=== PATIENT | male | born 1955 | race Caucasian/White ===

== ENCOUNTER 2017-04-07 13:56 | Emergency (ER) | payer MEDICARE, MEDICAID ==
[~2017-04-07] VITALS: Ht 165.1 cm; Wt 128.0 kg
[~2017-04-07 13:56] MED LIST: ACET1TAB12 PO; MESA0.37 PO
[2017-04-07] MEDS ORDERED: IBUP-1984 PO (15:47)
[2017-04-07 16:07] VITALS: BP 135/65
== END 2017-04-07 16:09 | disposition home or self-care (01) ==
LOC: ER 13:57
DX: M25.562 Pain in left knee (principal); I10 Essential (primary) hypertension; J45.909 Unspecified asthma, uncomplicated; Z79.899 Other long term (current) drug therapy; Z90.49 Acquired absence of other specified parts of digestive tract
CPT/HCPCS: 29505; 73564; 99284

== ENCOUNTER 2017-05-27 11:06 | Emergency (ER) | payer MEDICARE, MEDICAID ==
[~2017-05-27] VITALS: Ht 165.1 cm; Wt 93.6 kg
[2017-05-27 11:09] VITALS: BP 140/88
[2017-05-27] MEDS ORDERED: AZIT250T PO (11:48)
[2017-05-27] MEDS ORDERED: BENZ-16 PO (11:48)
== END 2017-05-27 11:54 | disposition home or self-care (01) ==
LOC: ER 11:06
DX: J06.9 Acute upper respiratory infection, unspecified (principal); I10 Essential (primary) hypertension; J45.909 Unspecified asthma, uncomplicated
CPT/HCPCS: 99283

== ENCOUNTER 2017-12-01 16:15 | Emergency (ER) | payer MEDICARE, MEDICAID ==
[~2017-12-01] VITALS: Ht 165.1 cm; Wt 118.0 kg
[~2017-12-01 16:15] MED LIST changes: +PROCHC RC
[2017-12-01] MEDS ORDERED: ketorolac trometh. 30mg/ml inj. IV ONE (16:35)
[2017-12-01] MEDS ORDERED: normal saline 1000ML IV soln IVB ONE (16:35)
[2017-12-01] MEDS ORDERED: ondansetron/PF 4mg/2ml inj IV ONE (16:35)
[2017-12-01 16:52] LABS: BASOPHILS % (AUTO) 0.6 % (0-1); EOSINOPHILS # (AUTO) 0.2 X10'3 (0-0.9); EOSINOPHILS % (AUTO) 2.9 % (0-6); HEMATOCRIT 42.2 % (42.0-52.0); HEMOGLOBIN 14.1 g/dl (14.0-17.9); LYMPHOCYTES # (AUTO) 1.8 X10'3 (1.1-4.8); LYMPHOCYTES % (AUTO) 21.9 % (21-51); MEAN CORPUSCULAR HEMOGLOBIN 30.1 PG (27.0-31.0); MEAN CORPUSCULAR HGB CONC 33.4 % (33.0-36.5); MEAN CORPUSCULAR VOLUME 90.3 FL (78-98); MONOCYTES # (AUTO) 0.7 X10'3 (0-0.9); MONOCYTES % (AUTO) 8.1 % (2-12); NEUTROPHILS # (AUTO) 5.5 X10'3 (1.8-7.7); NEUTROPHILS % (AUTO) 66.5 % (42-75); PLATELET COUNT 259 X10'3 (140-440); RED BLOOD COUNT 4.67 X10'6 (4.70-6.10); RED CELL DISTRIBUTION WIDTH 13.6 % (11.5-14.5); WHITE BLOOD COUNT 8.3 X10'3 (4.5-11.0)
[2017-12-01 17:10] LABS: ALANINE AMINOTRANSFERASE 24 U/L (12-78); ALBUMIN 3.8 G/DL (3.4-5.0); ALBUMIN/GLOBULIN RATIO 0.9 (1.1-1.5); ALKALINE PHOSPHATASE 67 IU/L (46-116); ANION GAP 10 (8-16); ASPARTATE AMINO TRANSFERASE 15 U/L (10-37); BILIRUBIN,TOTAL 0.3 MG/DL (0.1-1.0); BLOOD UREA NITROGEN 17 MG/DL (7-18); BUN/CREATININE RATIO 14.8 (5.4-32.0); CALCIUM 9.2 MG/DL (8.5-10.1); CHLORIDE 103 MMOL/L (99-107); CREATININE 1.15 MG/DL (0.60-1.10); GLUCOSE 95 MG/DL (70-104); LIPASE 197 U/L (73-393); SODIUM 139 MMOL/L (135-145); TOTAL CARBON DIOXIDE 26.3 MMOL/L (24-32); eGFR 64 ML/MIN
[2017-12-01] MEDS ORDERED: morphine 4 MG/ML inj SYRINge IV ONE (18:10)
[2017-12-01 18:13] LABS: CLARITY,URINE Clear (Clear); COLOR,URINE Yellow (Yellow); GLUCOSE, URINE Negative (Neg); KETONES,URINE Negative (Neg); LEUKOCYTE ESTERASE ,URINE Negative (Neg); NITRITES, URINE Negative (Neg); OCCULT BLOOD,URINE Negative (Neg); PROTEIN,URINE Negative (Neg)
[2017-12-01 18:17] LABS: UA COLLECTION TYPE STRAIGHT CATH
[2017-12-01] MEDS ORDERED: LIDO700A32 TOP (18:24)
[2017-12-01] MEDS ORDERED: ACET-2615 PO (18:24)
[2017-12-01] MEDS ORDERED: MELO-100 PO (18:24)
[2017-12-01] MEDS ORDERED: acetaminophen 325mg tablet PO ONE (18:25)
[2017-12-01 19:01] VITALS: BP 115/58
== END 2017-12-01 19:04 | disposition home or self-care (01) ==
LOC: ER 16:15
DX: M54.89 Other dorsalgia (principal); I10 Essential (primary) hypertension; J45.909 Unspecified asthma, uncomplicated
CPT/HCPCS: 36415; 74176; 80053; 81003; 83690; 85025; 96374; 96375; 99285; A4353; J1885; J2270; J2405; J7030

== ENCOUNTER 2018-06-09 10:41 | Day surgery (SDC) | payer MEDICARE, MEDICAID ==
[~2018-06-09 10:41] MED LIST changes: +LIDO700A32 TOP; +MELO-100 PO
[2018-06-09] MEDS ORDERED: LORA10CA9 (12:00)
[2018-06-09] MEDS ORDERED: LIDOcaine 1%/PF 5ML 10 MG/ML VIAL ONE (12:08)
[2018-06-09] MEDS ORDERED: MESA0.37 PO (14:20)
[2018-06-09] MEDS ORDERED: LORA10TA7 PO (14:20)
[2018-06-09] MEDS ORDERED: LISI10TA4 PO (14:20)
--- NOTE | 2018-06-09 14:37 | NUR ---
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 Patient assessed for conditions, medications and medical history. 1130 Dr Jin at the bedside. Time out done. Papillomas injected with lidocaine and removed by Dr Jin with #10 scalpel. Samples collected and sent to pathology. Procedure tolerated well. [address] Jin to follow up in his surgical office in 1-2 weeks. Also instructed to leave dressing on for 24 hours then remove and cover any sites that still be oozing with a bandaid. Pt verbalizes understanding of the above instructions
== END 2018-06-09 12:31 | disposition home or self-care (01) ==
LOC: WOUND CARE 10:41
PROVIDERS: ATTEND Surgery
DX: D23.5 Other benign neoplasm of skin of trunk (principal); L08.89 Other specified local infections of the skin and subcutaneous tissue; I10 Essential (primary) hypertension; J45.909 Unspecified asthma, uncomplicated; E66.9 Obesity, unspecified; G47.33 Obstructive sleep apnea (adult) (pediatric); Z98.890 Other specified postprocedural states; Z87.442 Personal history of urinary calculi; L91.8 Other hypertrophic disorders of the skin
CPT/HCPCS: 11400; J2001; 88304

== ENCOUNTER 2019-03-19 21:05 | Emergency (ER) | payer MEDICARE, MEDICAID ==
[~2019-03-19] VITALS: Ht 160 cm; Wt 113.6 kg
[~2019-03-19 21:05] MED LIST changes: -ACET1TAB12 PO; -LIDO700A32 TOP; +LISI10TA4 PO; +LORA10CA9; +LORA10TA7 PO; -MELO-100 PO
[2019-03-19 21:08] VITALS: BP 164/84
[2019-03-19] MEDS ORDERED: AMOX-422 PO (21:28)
[2019-03-19] MEDS ORDERED: dexamethasone sod phosphate 10mg/ml inj PO STA (21:29)
== END 2019-03-19 22:27 | disposition home or self-care (01) ==
LOC: ER 21:06
DX: J18.9 Pneumonia, unspecified organism (principal); J02.9 Acute pharyngitis, unspecified; I10 Essential (primary) hypertension; J45.909 Unspecified asthma, uncomplicated; R62.50 Unspecified lack of expected normal physiological development in childhood; Z87.442 Personal history of urinary calculi; Z90.49 Acquired absence of other specified parts of digestive tract; Z79.899 Other long term (current) drug therapy
CPT/HCPCS: 71046; 99283; J1100

== ENCOUNTER 2019-04-19 14:51 | Emergency (ER) | payer MEDICARE, MEDICAID ==
[~2019-04-19] VITALS: Ht 165.1 cm; Wt 120.4 kg
[2019-04-19] MEDS ORDERED: ketorolac trometh. 30mg/ml inj. IM STA (15:23)
[2019-04-19] MEDS ORDERED: LIDOcaine 5% patch TP STA (15:23)
[2019-04-19 15:26] LABS: CLARITY,URINE SLIGHTLY CLOUDY (Clear); COLOR,URINE YELLOW (Yellow); GLUCOSE, URINE NEGATIVE (Neg); KETONES,URINE NEGATIVE (Neg); LEUKOCYTE ESTERASE ,URINE TRACE (Neg); NITRITES, URINE NEGATIVE (Neg); OCCULT BLOOD,URINE TRACE-INTACT (Neg); PROTEIN,URINE NEGATIVE (Neg); UA COLLECTION TYPE VOIDED; UROBILINOGEN,URINE 0.2 E.U/dL (0.2-1.0)
[2019-04-19 15:35] LABS: MUCUS STRANDS FEW /LPF (Neg); SQUAMOUS EPITHELIAL CELL,UR FEW /LPF (FEW)
[2019-04-19 15:37] LABS: BACTERIA,URINE 1+ /HPF (Neg)
[2019-04-19] MEDS ORDERED: normal saline 1000ML IV soln IVB ONE (16:00)
[2019-04-19 16:25] LABS: BASOPHILS # (AUTO) 0.1 X10'3 (0-0.2); BASOPHILS % (AUTO) 0.7 % (0-1); EOSINOPHILS # (AUTO) 0.4 X10'3 (0-0.9); EOSINOPHILS % (AUTO) 4.4 % (0-6); HEMATOCRIT 42.2 % (42.0-52.0); HEMOGLOBIN 14.2 g/dl (14.0-17.9); LYMPHOCYTES # (AUTO) 2.1 X10'3 (1.1-4.8); LYMPHOCYTES % (AUTO) 24.8 % (21-51); MEAN CORPUSCULAR HGB CONC 33.6 g/dL (33.0-36.5); MEAN CORPUSCULAR VOLUME 89.3 FL (78-98); MEAN PLATELET VOLUME 7.9 FL (7.4-10.4); MONOCYTES # (AUTO) 0.6 X10'3 (0-0.9); NEUTROPHILS # (AUTO) 5.5 X10'3 (1.8-7.7); NEUTROPHILS % (AUTO) 63.1 % (42-75); PLATELET COUNT 249 X10'3 (140-440); RED BLOOD COUNT 4.72 X10'6 (4.70-6.10); RED CELL DISTRIBUTION WIDTH 13.5 % (11.5-14.5); WHITE BLOOD COUNT 8.7 X10'3 (4.5-11.0)
[2019-04-19 16:42] LABS: ALANINE AMINOTRANSFERASE 23 U/L (12-78); ALBUMIN 3.9 G/DL (3.4-5.0); ALBUMIN/GLOBULIN RATIO 0.9 (1.1-1.5); ALKALINE PHOSPHATASE 79 IU/L (46-116); ANION GAP 9 (8-16); ASPARTATE AMINO TRANSFERASE 14 U/L (10-37); BILIRUBIN,TOTAL 0.2 MG/DL (0.1-1.0); BLOOD UREA NITROGEN 19 MG/DL (7-18); BUN/CREATININE RATIO 15.7 (5.4-32.0); CHLORIDE 103 MMOL/L (99-107); CREATININE 1.21 MG/DL (0.60-1.10); GLUCOSE 102 MG/DL (70-104); LIPASE 222 U/L (73-393); POTASSIUM 4.7 MMOL/L (3.5-5.1); SODIUM 137 MMOL/L (135-145); TOTAL CARBON DIOXIDE 24.8 MMOL/L (24-32); TOTAL PROTEIN 8.1 G/DL (6.4-8.2); eGFR 60 ML/MIN
[2019-04-19] MEDS ORDERED: CEPH500C5 PO ×2 (16:55→16:58)
[2019-04-19 18:15] VITALS: BP 143/104
== END 2019-04-19 18:16 | disposition home or self-care (01) ==
LOC: ER 14:51
DX: S46.811A Strain of other muscles, fascia and tendons at shoulder and upper arm level, right arm, initial encounter (principal); N39.0 Urinary tract infection, site not specified; J06.9 Acute upper respiratory infection, unspecified; B97.89 Other viral agents as the cause of diseases classified elsewhere; I10 Essential (primary) hypertension; J45.909 Unspecified asthma, uncomplicated; Z90.49 Acquired absence of other specified parts of digestive tract; Z87.442 Personal history of urinary calculi; Z79.899 Other long term (current) drug therapy; X50.0XXA Overexertion from strenuous movement or load, initial encounter; Y93.89 Activity, other specified; Y92.89 Other specified places as the place of occurrence of the external cause; Y99.8 Other external cause status
CPT/HCPCS: 36415; 71045; 74176; 80053; 81001; 83690; 85025; 87088; 96372; 99284; J1885; J7030

== ENCOUNTER 2019-09-11 13:56 | Emergency (ER) | payer MEDICARE, MEDICAID ==
[~2019-09-11] VITALS: Ht 165.1 cm; Wt 123.0 kg
[~2019-09-11 13:56] MED LIST changes: +CEPH500C5 PO
[2019-09-11 14:11] VITALS: BP 141/71
[2019-09-11] MEDS ORDERED: ACET325C6 PO (16:11)
== END 2019-09-11 16:32 | disposition home or self-care (01) ==
LOC: ER 13:57
DX: M25.561 Pain in right knee (principal); I10 Essential (primary) hypertension; J45.909 Unspecified asthma, uncomplicated; M19.90 Unspecified osteoarthritis, unspecified site; Z90.49 Acquired absence of other specified parts of digestive tract; Z79.899 Other long term (current) drug therapy
CPT/HCPCS: 73564; 99284

== ENCOUNTER 2020-01-04 07:43 | Day surgery (SDC) | payer MEDICARE, MEDICAID ==
[2019-12-28 15:45] LABS: BASOPHILS # (AUTO) 0.1 X10'3 (0-0.2); BASOPHILS % (AUTO) 0.8 % (0-1); EOSINOPHILS # (AUTO) 0.2 X10'3 (0-0.9); EOSINOPHILS % (AUTO) 2.9 % (0-6); LYMPHOCYTES # (AUTO) 1.9 X10'3 (1.1-4.8); LYMPHOCYTES % (AUTO) 22.5 % (21-51); MEAN CORPUSCULAR HEMOGLOBIN 31.2 PG (27.0-31.0); MEAN CORPUSCULAR HGB CONC 33.7 g/dL (33.0-36.5); MEAN CORPUSCULAR VOLUME 92.4 FL (78-98); MEAN PLATELET VOLUME 8.2 FL (7.4-10.4); MONOCYTES # (AUTO) 0.6 X10'3 (0-0.9); MONOCYTES % (AUTO) 6.7 % (2-12); NEUTROPHILS # (AUTO) 5.8 X10'3 (1.8-7.7); NEUTROPHILS % (AUTO) 67.1 % (42-75); PRE OP HEMATOCRIT 40.2 % (42.0-52.0); PRE OP HEMOGLOBIN 13.5 g/dL (14.0-17.9); PRE OP PLATELET COUNT 237 X10'3 (140-440); RED BLOOD COUNT 4.35 X10'6 (4.70-6.10)
[2019-12-28 15:59] LABS: ALBUMIN 3.8 G/DL (3.4-5.0); ALKALINE PHOSPHATASE 68 IU/L (46-116); BLOOD UREA NITROGEN 17 MG/DL (7-18); BUN/CREATININE RATIO 16.7 (5.4-32.0); CALCIUM 9.1 MG/DL (8.5-10.1); CHLORIDE 103 MMOL/L (99-107); CREATININE 1.02 MG/DL (0.60-1.10); PRE OP ALT 27 U/L (30-65); PRE OP ANION GAP 7 (8-16); PRE OP AST 11 U/L (10-37); PRE OP BILIRUB, TOTAL 0.3 MG/DL (0.0-1.0); PRE OP GLUCOSE 94 MG/DL (70-104); PRE OP SODIUM 138 MMOL/L (135-145); TOTAL CARBON DIOXIDE 27.8 MMOL/L (24-32); TOTAL PROTEIN 7.6 G/DL (6.4-8.2); eGFR 73 ML/MIN
[~2020-01-04] VITALS: Ht 165.1 cm; Wt 125.8 kg
[2020-01-04] VITALS (8 sets, daily range): BP systolic 116–140; BP diastolic 57–65
[~2020-01-04 07:43] MED LIST changes: -CEPH500C5 PO; -LORA10CA9; -LORA10TA7 PO; -MESA0.37 PO; -PROCHC RC; +ceFAZolin inj. 3,000 MG in normal saline 100ml IV soln 100 ML IV ONE; +famotidine 20mg tablet PO ONE; +ringers solution, lacted 1,000 ML IV SCH; +vancomycin 1,500 MG in NS 300ml IV soln IV ONE
[2020-01-04] MEDS ORDERED: BUPIVAcaine/PF 2.5 mg/ml (0.25%) 30ml vial ONE (10:13)
[2020-01-04] MEDS ORDERED: labetalol 20mg/4ml (5mg/ml) syringe IV PRN (10:20)
[2020-01-04] MEDS ORDERED: morphine 2 MG/ML inj. syringe IV PRN (10:20)
[2020-01-04] MEDS ORDERED: hydrALAZINE 20mg/ml inj. IV PRN (10:20)
[2020-01-04] MEDS ORDERED: ringers solution, lacted 1,000 ML IV SCH (10:20)
[2020-01-04] MEDS ORDERED: meperidine/PF 25mg/ml syringe IV PRN ×3 (10:20)
[2020-01-04] MEDS ORDERED: proCHLORperazine 10 MG/2 ml inj IV PRN (10:20)
[2020-01-04] MEDS ORDERED: ondansetron/PF 4mg/2ml inj IV PRN (10:20)
[2020-01-04] MEDS ORDERED: morphine 4 MG/ML inj SYRINge IV PRN (10:20)
[2020-01-04] MEDS ORDERED: acetaminophen 1,000mg/100ml IV 100 ML IV PRN (10:20)
[2020-01-04] MEDS ORDERED: sevoflurane 250ml liquid IH ONE (10:20)
[2020-01-04] MEDS ORDERED: fentaNYL/PF 50MCG/1 ML 2ML syringe ONE (10:27)
[2020-01-04] MEDS ORDERED: midazolam 2 mg/2 ml injection ONE (10:31)
[2020-01-04] MEDS ORDERED: LIDOcaine 2% (20mg/ml) 5ml vial ONE (10:43)
[2020-01-04] MEDS ORDERED: rocuronium 10mg/ml inj IV ONE (10:43)
[2020-01-04] MEDS ORDERED: propofol inj 20 ML IV ONE (10:43)
[2020-01-04] MEDS ORDERED: dexamethasone sod phosphate 4mg/ml inj. ONE (10:57)
[2020-01-04] MEDS ORDERED: ondansetron/PF 4mg/2ml inj ONE (10:57)
[2020-01-04] MEDS ORDERED: triamcinolone acetonide 40mg/ml inj ONE (11:25)
[2020-01-04] MEDS ORDERED: neostigmine methylsulfate 1 MG/ML 10ml vial ONE (11:32)
[2020-01-04] MEDS ORDERED: glycopyrrolate 0.2mg/ml inj ONE (11:32)
--- NOTE | 2020-01-04 11:49 | NUR ---
Received from OR via [facility] , accompanied by Anesthesiologist ARIEL and report given by Anesthesiolgist. PATIENT WITH 20G PIV IN RIGHT UE RUNNING LR AT 100. RIGHT KNEE WITH BIAS WRAP PRESENT. + DORSALIS PEDIS. VSS. 10L MASK ON WITH 100% SATURATIONS. Addendum: 01/04/20 at 1158 by Daren Melvin RN, RN Amended: Links added.
--- NOTE | 2020-01-04 12:59 | NUR ---
PATIENT AND FAMILY AND THEY HAVE VERBALIZED UNDERSTANDING, OPPORTUNITY TO ASK QUESTIONS GIVEN AND PATIENT COMFORTABLE WITH DC. IV TAKEN OUT WITHOUT COMPLICATION. PATIENT HAS MET ALL DC CRITERIA FOR DC HOME. I HAVE REVIEWED D/C INSTRUCTIONS WITH OUT VIA WHEELCHAIR WHERE PATIENT WAS TAKEN HOME WITH ALL BELONGINGS. FAMILY GAVE PATIENT TRANSPORT HOME. CARE TURNED OVER. CALLED PATIENTS CAREGIVER TO USE CPAP FOR NEXT 24 HOURS. Addendum: 01/04/20 at 1317 by Daren Melvin RN, RN Amended: Links added.
== END 2020-01-04 12:59 | disposition home or self-care (01) ==
LOC: PAS 07:43
PROVIDERS: ATTEND Orthopaedic Surgery
DX: S83.281A Other tear of lateral meniscus, current injury, right knee, initial encounter (principal); S83.231A Complex tear of medial meniscus, current injury, right knee, initial encounter; M94.261 Chondromalacia, right knee; M17.0 Bilateral primary osteoarthritis of knee; J45.909 Unspecified asthma, uncomplicated; G47.33 Obstructive sleep apnea (adult) (pediatric); E78.5 Hyperlipidemia, unspecified; I10 Essential (primary) hypertension; E66.01 Morbid (severe) obesity due to excess calories; Z68.42 Body mass index [BMI] 45.0-49.9, adult; Z98.890 Other specified postprocedural states; Z79.899 Other long term (current) drug therapy; Z20.828 Contact with and (suspected) exposure to other viral communicable diseases; X58.XXXA Exposure to other specified factors, initial encounter; Y93.89 Activity, other specified; Y92.89 Other specified places as the place of occurrence of the external cause; Y99.8 Other external cause status
CPT/HCPCS: 29873; 29879; 29880; 36415; 80053; 82948; 85025; 87635; 93005; J0690; J1100; J2001; J2175; J2250; J2405; J2704; J2710; J3010; J3301; J3370; J3490; J7040; A4215; A4618; A6250; A6449; A7000; J7120

== ENCOUNTER 2020-08-19 12:38 | Emergency (ER) | payer MEDICARE, MEDICAID ==
[~2020-08-19] VITALS: Ht 157.5 cm; Wt 131.4 kg
[~2020-08-19 12:38] MED LIST changes: +LISI10TA27 PO; -LISI10TA4 PO; -ceFAZolin inj. 3,000 MG in normal saline 100ml IV soln 100 ML IV ONE; -famotidine 20mg tablet PO ONE; -ringers solution, lacted 1,000 ML IV SCH; -vancomycin 1,500 MG in NS 300ml IV soln IV ONE
[2020-08-19 13:13] LABS: BASOPHILS % (AUTO) 0.4 % (0-1); EOSINOPHILS # (AUTO) 0.1 X10'3 (0-0.9); EOSINOPHILS % (AUTO) 0.8 % (0-6); HEMATOCRIT 37.9 % (42.0-52.0); HEMOGLOBIN 12.8 g/dl (14.0-17.9); LYMPHOCYTES # (AUTO) 1.7 X10'3 (1.1-4.8); LYMPHOCYTES % (AUTO) 13.4 % (21-51); MEAN CORPUSCULAR HEMOGLOBIN 31.1 PG (27.0-31.0); MEAN CORPUSCULAR HGB CONC 33.7 g/dL (33.0-36.5); MEAN CORPUSCULAR VOLUME 92.3 FL (78-98); MEAN PLATELET VOLUME 8.6 FL (7.4-10.4); MONOCYTES # (AUTO) 0.7 X10'3 (0-0.9); MONOCYTES % (AUTO) 5.3 % (2-12); NEUTROPHILS # (AUTO) 10.2 X10'3 (1.8-7.7); NEUTROPHILS % (AUTO) 80.1 % (42-75); PLATELET COUNT 215 X10'3 (140-440); RED CELL DISTRIBUTION WIDTH 13.2 % (11.5-14.5); WHITE BLOOD COUNT 12.8 X10'3 (4.5-11.0)
[2020-08-19 13:29] LABS: ALANINE AMINOTRANSFERASE 22 U/L (12-78); ALBUMIN 3.4 G/DL (3.4-5.0); ALBUMIN/GLOBULIN RATIO 0.9 (1.1-1.5); ALKALINE PHOSPHATASE 69 IU/L (46-116); ANION GAP 9 (8-16); ASPARTATE AMINO TRANSFERASE 12 U/L (10-37); BILIRUBIN,TOTAL 0.4 MG/DL (0.1-1.0); BLOOD UREA NITROGEN 12 MG/DL (7-18); BUN/CREATININE RATIO 11.1 (5.4-32.0); CHLORIDE 105 MMOL/L (99-107); CREATININE 1.08 MG/DL (0.60-1.10); GLUCOSE 136 MG/DL (70-104); LIPASE 88 U/L (73-393); POTASSIUM 3.7 MMOL/L (3.5-5.1); SODIUM 140 MMOL/L (135-145); eGFR 68 ML/MIN
[2020-08-19 13:36] LABS: CALCIUM 8.7 MG/DL (8.5-10.1)
[2020-08-19 13:50] VITALS: BP 127/75
[2020-08-19] MEDS ORDERED: pantoprazole 40 MG vial IV ONE (13:50)
[2020-08-19] MEDS ORDERED: ondansetron/PF 4mg/2ml inj IV ONE (13:50)
[2020-08-19] MEDS ORDERED: normal saline 1000ml 1,000 ML IV ONE (14:30)
[2020-08-19] MEDS ORDERED: AMOX-422 PO (15:36)
[2020-08-19] MEDS ORDERED: ONDA4TAB6 PO (15:36)
[2020-08-19] MEDS ORDERED: ondansetron 4mg rapidly disintigrating tab PO ONE (15:40)
[2020-08-19] MEDS ORDERED: amox tr/potassium clavulanate 875/125mg TAB PO ONE (15:40)
[2020-08-19] MEDS ORDERED: HYDROcodone/acetaminophen 5mg/325mg tablet PO ONE (15:40)
== END 2020-08-19 16:26 | disposition home or self-care (01) ==
LOC: ER 12:38
DX: R10.31 Right lower quadrant pain (principal); K52.9 Noninfective gastroenteritis and colitis, unspecified; I10 Essential (primary) hypertension; J45.909 Unspecified asthma, uncomplicated; M19.90 Unspecified osteoarthritis, unspecified site; Z87.442 Personal history of urinary calculi; Z79.2 Long term (current) use of antibiotics; Z79.899 Other long term (current) drug therapy
CPT/HCPCS: 36415; 74176; 80053; 83690; 85025; 96361; 96374; 96375; 99284; C9113; J2405; J7030

== ENCOUNTER 2020-09-25 09:15 | Day surgery (SDC) | payer MEDICARE, MEDICAID ==
[~2020-09-25] VITALS: Ht 165.1 cm; Wt 127.3 kg
[~2020-09-25 09:15] MED LIST changes: +ONDA4TAB6 PO
[2020-09-25 09:30] VITALS: BP 140/79
[2020-09-25] MEDS ORDERED: LORA10TA7 PO (09:37)
[2020-09-25] MEDS ORDERED: fentaNYL/PF 50MCG/1 ML 2ML syringe ONE (09:42)
[2020-09-25] MEDS ORDERED: MIDAZolam 1 MG/ML 5ML VIAL ONE (09:42)
[2020-09-25 10:06] VITALS: BP 136/71
[2020-09-25 10:16] VITALS: BP 127/71
[2020-09-25 10:26] VITALS: BP 125/65
[2020-09-25 10:36] VITALS: BP 123/69
== END 2020-09-25 10:40 | disposition home or self-care (01) ==
LOC: GI LAB 09:15
PROVIDERS: ATTEND Internal Medicine Gastroenterology
DX: K51.30 Ulcerative (chronic) rectosigmoiditis without complications (principal); K62.89 Other specified diseases of anus and rectum; I10 Essential (primary) hypertension; J45.909 Unspecified asthma, uncomplicated; E66.9 Obesity, unspecified; Z68.42 Body mass index [BMI] 45.0-49.9, adult; Z79.899 Other long term (current) drug therapy
CPT/HCPCS: 45380; G0500; J2250; J3010; J7040; 88305; 99152; A4620

== ENCOUNTER 2021-04-03 09:57 | Day surgery (SDC) | payer MEDICARE, MEDICAID ==
[2021-03-27 15:01] LABS: BASOPHILS # (AUTO) 0.1 X10'3 (0-0.2); BASOPHILS % (AUTO) 1.3 % (0-1); EOSINOPHILS # (AUTO) 0.3 X10'3 (0-0.9); EOSINOPHILS % (AUTO) 3.7 % (0-6); LYMPHOCYTES # (AUTO) 2.1 X10'3 (1.1-4.8); LYMPHOCYTES % (AUTO) 28.8 % (21-51); MEAN CORPUSCULAR HEMOGLOBIN 31.5 PG (27.0-31.0); MEAN CORPUSCULAR VOLUME 92.5 FL (78-98); MEAN PLATELET VOLUME 8.7 FL (7.4-10.4); MONOCYTES # (AUTO) 0.5 X10'3 (0-0.9); MONOCYTES % (AUTO) 7.4 % (2-12); NEUTROPHILS # (AUTO) 4.2 X10'3 (1.8-7.7); NEUTROPHILS % (AUTO) 58.8 % (42-75); PRE OP HEMATOCRIT 42.2 % (42.0-52.0); PRE OP HEMOGLOBIN 14.4 g/dL (14.0-17.9); PRE OP PLATELET COUNT 220 X10'3 (140-440); RED BLOOD COUNT 4.56 X10'6 (4.70-6.10); RED CELL DISTRIBUTION WIDTH 12.9 % (11.5-14.5)
[2021-03-27 15:14] LABS: ALBUMIN 3.8 G/DL (3.4-5.0); ALBUMIN/GLOBULIN RATIO 0.9 (1.1-1.5); ALKALINE PHOSPHATASE 72 IU/L (46-116); BLOOD UREA NITROGEN 15 MG/DL (7-18); BUN/CREATININE RATIO 14.9 (5.4-32.0); CALCIUM 9.2 MG/DL (8.5-10.1); CHLORIDE 102 MMOL/L (99-107); CREATININE 1.01 MG/DL (0.60-1.10); PRE OP ALT 26 U/L (30-65); PRE OP ANION GAP 11 (8-16); PRE OP BILIRUB, TOTAL 0.3 MG/DL (0.0-1.0); PRE OP GLUCOSE 99 MG/DL (70-104); PRE OP SODIUM 139 MMOL/L (135-145); TOTAL CARBON DIOXIDE 26.2 MMOL/L (24-32); TOTAL PROTEIN 7.9 G/DL (6.4-8.2); eGFR 73 ML/MIN
[2021-03-27 15:16] LABS: PRE OP AST 27 U/L (10-37); PRE OP POTASSIUM 4.5 MMOL/L (3.4-5.1)
[2021-04-03] VITALS (7 sets, daily range): BP systolic 120–149; BP diastolic 58–80
[~2021-04-03] VITALS: Ht 165.1 cm; Wt 123.2 kg
[~2021-04-03 09:57] MED LIST changes: +DICL100G30 TOP; +LORA10TA7 PO; +MESA0.374 PO; -ONDA4TAB6 PO; +famotidine 20mg tablet PO ONE; +ringers solution, lacted 1,000 ML IV SCH
[2021-04-03] MEDS ORDERED: morphine 4 MG/ML inj SYRINge IV PRN (10:55)
[2021-04-03] MEDS ORDERED: ondansetron/PF 4mg/2ml inj IV PRN (10:55)
[2021-04-03] MEDS ORDERED: meperidine/PF 25mg/ml syringe IV PRN ×3 (10:55)
[2021-04-03] MEDS ORDERED: morphine 2 MG/ML inj. syringe IV PRN (10:55)
[2021-04-03] MEDS ORDERED: proCHLORperazine 10 MG/2 ml inj IV PRN (10:55)
[2021-04-03] MEDS ORDERED: ringers solution, lacted 1,000 ML IV SCH (10:55)
[2021-04-03] MEDS ORDERED: triamcinolone acetonide 40mg/ml inj ONE (11:00)
[2021-04-03] MEDS ORDERED: BUPIVAcaine/PF 2.5 mg/ml (0.25%) 30ml vial ONE (11:00)
[2021-04-03] MEDS ORDERED: sevoflurane 250ml liquid IH ONE (11:22)
[2021-04-03] MEDS ORDERED: fentaNYL/PF 50MCG/1 ML 2ML syringe ONE (11:27)
[2021-04-03] MEDS ORDERED: propofol inj 20 ML IV ONE (11:28)
[2021-04-03] MEDS ORDERED: LIDOcaine 2% (20mg/ml) 5ml vial ONE (11:28)
[2021-04-03] MEDS ORDERED: midazolam 1 mg/ML 2ml injection ONE (11:28)
[2021-04-03] MEDS ORDERED: VANCOMYCIN 1,500MG inj. 1,500 MG in normal saline 500ml IV soln 500 ML IV ONE (11:30)
[2021-04-03] MEDS ORDERED: cefazolin/dext.iso 2gm/50ml 50 ML IV ONE (11:35)
[2021-04-03] MEDS ORDERED: cefazolin/dext.iso 2gm/100ml 50 ML IV ONE (11:35)
[2021-04-03] MEDS ORDERED: dexamethasone sod phosphate 4mg/ml inj. ONE (11:53)
[2021-04-03] MEDS ORDERED: ondansetron/PF 4mg/2ml inj ONE (11:53)
[2021-04-03] MEDS ORDERED: meperidine/PF 25mg/ml syringe ONE (11:56)
[2021-04-03] MEDS ORDERED: acetaminophen 1,000mg/100ml IV 100 ML IV ONE (12:45)
--- NOTE | 2021-04-03 12:53 | NUR ---
Received from OR via [facility] , accompanied by Anesthesiologist LIBIA and report given by Anesthesiolgist. PATIENT WIWHT 20G PIV IN RIGHT UE RUNNING LR AT 100. MEDICATED FOR PAIN UPON ARRIVAL FROM ANESTHESIA. PATIENTRIGHTTABBY WITH BIAS DRESSING ON AND IS CDI. + DP TO RIGHT FOOT. GLASSES DONNED UPON ARRIVAL. Addendum: 04/03/21 at 1305 by Daren Melvin RN, RN Amended: Links added.
--- NOTE | 2021-04-03 13:43 | NUR ---
ALL DISCHARGE CRITERIA HAS BEEN MET. VSS, PAIN AT A TOLERABLE LEVEL, VOIDING AND ABLE TO SAFELY AMBULATE AND TRANSFER SELF. IV TAKEN OUT WITHOUT ANY COMPLICATIONS. ALL DISCHARGE INSTRUCTIONS COVERED WITH PATIENT AND ALL QUESTIONS ANSWERED. PATIENT TAKEN OUT VIA WHEELCHAIR TO PERSONAL VEHICLE WHERE FAMILY/FRIEND DROVE PATIENT HOME. WATER JET LOOM FIXER GIVEN ALL DC INSTRUCTIONS VIA PHONE. PATIENT TAKEN HOME VIA TRANSPORT. ABLE TO TRANSFER INTO WHEELCHAIR WITH [facility]. Addendum: 04/03/21 at 1348 by Daren Andujar - ROSANA WAYNE Amended: Links added.
== END 2021-04-03 13:43 | disposition home or self-care (01) ==
LOC: PRE-OP 09:57
PROVIDERS: ATTEND Orthopaedic Surgery
DX: S83.231A Complex tear of medial meniscus, current injury, right knee, initial encounter (principal); S83.271A Complex tear of lateral meniscus, current injury, right knee, initial encounter; M17.11 Unilateral primary osteoarthritis, right knee; M94.261 Chondromalacia, right knee; E78.5 Hyperlipidemia, unspecified; I10 Essential (primary) hypertension; G47.30 Sleep apnea, unspecified; J45.909 Unspecified asthma, uncomplicated; Z98.890 Other specified postprocedural states; Z79.899 Other long term (current) drug therapy; Z20.822 Contact with and (suspected) exposure to COVID-19
CPT/HCPCS: 29873; 29879; 29880; 36415; 80053; 82948; 85025; 93005; J0131; J0690; J1100; J2175; J2250; J2405; J2704; J3010; J3301; J3370; J3490; J7040; J7120; U0003; U0005; Z7506; Z7508; Z7512; A4215; A4618; A6250; A6449

== ENCOUNTER 2021-07-22 15:27 | Emergency (ER) | payer MEDICARE, MEDICAID ==
[~2021-07-22] VITALS: Ht 157.5 cm; Wt 129.6 kg
[~2021-07-22 15:27] MED LIST changes: -famotidine 20mg tablet PO ONE; -ringers solution, lacted 1,000 ML IV SCH
[2021-07-22 15:33] VITALS: BP 152/79
[2021-07-22 16:34] LABS: CLARITY,URINE CLOUDY (Clear); COLOR,URINE YELLOW (Yellow); GLUCOSE, URINE NEGATIVE (Neg); KETONES,URINE NEGATIVE (Neg); LEUKOCYTE ESTERASE ,URINE NEGATIVE (Neg); NITRITES, URINE NEGATIVE (Neg); OCCULT BLOOD,URINE LARGE (Neg); PH,URINE 6.5 (4.8-8.0); PROTEIN,URINE 100 mg/dl (Neg); UROBILINOGEN,URINE 0.2 E.U/dL (0.2-1.0)
[2021-07-22 16:39] LABS: UA COLLECTION TYPE CLN CATCH MIDSTREAM
[2021-07-22 16:41] LABS: MUCUS STRANDS FEW /LPF (Neg); RBC,URINE TNTC /HPF (0-2); SQUAMOUS EPITHELIAL CELL,UR FEW /LPF (FEW); TRANSITIONAL EPI CELLS,URINE MANY /HPF
[2021-07-22 16:42] LABS: BACTERIA,URINE FEW /HPF (Neg)
[2021-07-22] MEDS ORDERED: LEVO500T90 PO (19:03)
[2021-07-22] MEDS ORDERED: levoFLOXACIN 250mg tablet PO ONE (19:05)
== END 2021-07-22 19:40 | disposition home or self-care (01) ==
LOC: ER 15:28
DX: N39.0 Urinary tract infection, site not specified (principal); N10 Acute pyelonephritis; R30.0 Dysuria; R31.9 Hematuria, unspecified; I10 Essential (primary) hypertension; J45.909 Unspecified asthma, uncomplicated; M19.90 Unspecified osteoarthritis, unspecified site; Z87.442 Personal history of urinary calculi; Z90.89 Acquired absence of other organs; Z79.2 Long term (current) use of antibiotics; Z79.899 Other long term (current) drug therapy
CPT/HCPCS: 74176; 81001; 87088; 99284

== ENCOUNTER 2022-01-11 15:04 | Emergency (ER) | payer MEDICARE, MEDICAID ==
[~2022-01-11] VITALS: Ht 165.1 cm; Wt 118.2 kg
[2022-01-11 15:21] VITALS: BP 165/115
[2022-01-11] MEDS ORDERED: cephalexin 250mg capsule PO ONE (18:10)
[2022-01-11] MEDS ORDERED: CEPH-585 PO (18:15)
== END 2022-01-11 18:26 | disposition home or self-care (01) ==
LOC: ER 15:04
DX: L03.90 Cellulitis, unspecified (principal); I10 Essential (primary) hypertension; J45.909 Unspecified asthma, uncomplicated; M19.90 Unspecified osteoarthritis, unspecified site; Z98.890 Other specified postprocedural states; Z56.0 Unemployment, unspecified
CPT/HCPCS: 99283

== ENCOUNTER 2024-03-08 12:28 | Outpatient (CLI) | payer MEDICARE, MEDICAID ==
[~2024-03-08 12:28] MED LIST changes: -DICL100G30 TOP; +DICL100G59 TOP
== END 2024-03-08 23:59 | disposition home or self-care (01) ==
LOC: US 12:28
PROVIDERS: ATTEND Student in an Organized Health Care Education/Training Program
DX: N32.89 Other specified disorders of bladder (principal); N28.1 Cyst of kidney, acquired
CPT/HCPCS: 76770